=== PATIENT | male | born 1950 | race Caucasian/White ===

== ENCOUNTER 2019-06-01 15:38 | Emergency (ER) | payer OTHER ==
--- NOTE | 2019-06-01 16:23 | EDM.PDOC ---
ED HPI GENERAL MEDICAL PROBLEM - General Chief Complaint: Fever Stated Complaint: FLU FOR 3 WKS/CONFUSED Time Seen by Provider: 06/01/19 15:55 Source of Information: Reports: Patient, RN Notes Reviewed - History of Present Illness INITIAL COMMENTS - FREE TEXT/NARRATIVE: 68-year-old male is in stating I have been sick for a month primarily with cough , mild shortness of breath. This is not been getting better, if anything getting worse. He states his cough is at times nonproductive and at times productive of colored phlegm. States he has had fever and chills off and on for many days. He has no current sore throat or nasal congestion. He also is concerned about an area of swelling that has been present left neck for about 2 months and "not going away". He does smoke and states he has been smoking for about "40 years" - Related Data Allergies Allergy/AdvReac Type Severity Reaction Status Date / Time bees Allergy Severe Swelling Uncoded 06/01/19 15:54 Home Meds: Home Meds Doxycycline [Vibramycin] 100 mg PO BID #14 tab 06/01/19 [Rx] Past Medical History - Past Health History Medical/Surgical History: Denies Medical/Surgical History Social & Family History - Tobacco Use Smoking Status *Q: Current Every Day Smoker Years of Tobacco use: 20 Packs/Tins Daily: 1 - Caffeine Use Caffeine Use: Reports: None - Recreational Drug Use Recreational Drug Use: No ED ROS GENERAL - Review of Systems Review Of Systems: See Below Constitutional: Denies: Fever, Chills, Diaphoresis HEENT: Denies: Sinus Problem, Throat Pain Respiratory: Reports: Shortness of Breath, Pleuritic Chest Pain, Cough, Sputum. Denies: Hemoptysis Cardiovascular: Reports: Chest Pain GI/Abdominal: Denies: Abdominal Pain, Nausea (Coughing), Vomiting Musculoskeletal: Denies: Shoulder Pain, Arm Pain, Leg Pain Skin: Denies: Rash, Erythema Neurological: Reports: No Symptoms ED EXAM, GENERAL - Physical Exam Exam: See Below General Appearance: Alert Nose: Normal Inspection Throat/Mouth: Normal Inspection, Normal Oropharynx Head: Atraumatic Neck: Other (2 to 3 cm palpable mass left neck, nontender, nonfluctuant, no surrounding warmth or erythema. No other neck mass or adenopathy visible or palpable) Respiratory/Chest: Lungs Clear. No: Rhonchi, Wheezing Cardiovascular: Regular Rate, Rhythm GI/Abdominal: Soft, Non-Tender Back Exam: No: CVA Tenderness (L), CVA Tenderness (R) Extremities: Normal Inspection, Normal Range of Motion. No: Pedal Edema, Leg Pain, Increased Warmth, Redness Neurological: Alert, Oriented, No Motor/Sensory Deficits Skin Exam: Warm, Dry, Normal Color Course - Vital Signs Last Recorded V/S: Last Vital Signs Temp 97.2 F 06/01/19 15:51 Pulse 84 06/01/19 15:51 Resp 20 06/01/19 15:51 BP 155/97 H 06/01/19 15:51 Pulse Ox 96 06/01/19 15:51 - Orders/Labs/Meds Labs: Laboratory Tests 06/01/19 06/01/19 Range/Units 16:55 16:55 WBC 12.55 H (4.23-9.07) K/mm3 RBC 5.93 (4.63-6.08) M/mm3 Hgb 16.8 (13.7-17.5) gm/dl Hct 50.0 (40.1-51.0) % MCV 84.3 (79.0-92.2) fl MCH 28.3 (25.7-32.2) pg MCHC 33.6 (32.2-35.5) g/dl RDW Std Deviation 44.7 H (35.1-43.9) fL Plt Count 278 (163-337) K/mm3 MPV 10.1 (9.4-12.3) fl Neut % (Auto) 65.7 (34.0-67.9) % Lymph % (Auto) 25.3 (21.8-53.1) % [place] % (Auto) 6.8 (5.3-12.2) % Eos % (Auto) 1.4 (0.8-7.0) Baso % (Auto) 0.5 (0.1-1.2) % Neut # (Auto) 8.25 H (1.78-5.38) K/mm3 Lymph # (Auto) 3.18 (1.32-3.57) K/mm3 [place] # (Auto) 0.85 H (0.30-0.82) K/mm3 Eos # (Auto) 0.17 (0.04-0.54) K/mm3 Baso # (Auto) 0.06 (0.01-0.08) K/mm3 Manual Slide Review Normal smear Sodium 136 (136-145) mEq/L Potassium 5.0 (3.5-5.1) mEq/L Chloride 99 (98-107) mEq/L Carbon Dioxide 30 (21-32) mEq/L Anion Gap 12.0 (5-15) BUN 14 (7-18) mg/dL Creatinine 0.9 (0.7-1.3) mg/dL Est Cr Clr Drug Dosing 85.02 mL/min Estimated GFR (MDRD) > 60 (>60) mL/min BUN/Creatinine Ratio 15.6 (14-18) Glucose 138 H (80-115) mg/dL Calcium 9.8 (8.5-10.1) mg/dL Total Bilirubin 0.7 (0.2-1.0) mg/dL AST 15 (15-37) U/L ALT 23 (16-63) U/L Alkaline Phosphatase 79 (46-116) U/L Total Protein 8.6 H (6.4-8.2) g/dl Albumin 3.8 (3.4-5.0) g/dl Globulin 4.8 gm/dL Albumin/Globulin Ratio 0.8 L (1-2) Meds: Medications Discontinued Medications Generic Name Dose Route Start Last Admin Trade Name Freq PRN Reason Stop Dose Admin Doxycycline Hyclate 200 mg 06/01/19 18:39 06/01/19 18:49 Vibramycin PO 06/01/19 18:40 200 mg ONETIME ONE Administration - Re-Assessments/Exams Free Text/Narrative Re-Assessment/Exam: 06/03/19 02:27 CXR nl, CBC relatively nl, he does have a large mass R neck, not inflamed, concerning for enlarged lymph node. This needs to be further evaluated/biopsy, This is a Sunday evening, He has had it for about 2 months. discharge instr. as documented. Departure - Departure Time of Disposition: 18:41 Disposition: Home, Self-Care 01 Condition: Fair Clinical Impression: Bronchitis - Discharge Information Prescriptions: Doxycycline [Vibramycin] 100 mg PO BID #14 tab Instructions: Upper Respiratory Infection, Adult, [id number] Referrals: Guadalupe Nascimento TRAINING PROJECT MANAGER [Primary Care Provider] - Forms: ED Department Discharge Additional Instructions: You have been given doxycycline 200 mg orally here in the ED, prescription provided to continue 100 mg twice daily for the next week. See Guadalupe at the [facility] clinic tomorrow, get a referral to have the mass of your left neck biopsied. Sepsis Event Note - Evaluation Sepsis Screening Result: No Definite Risk - Focused Exam Date Exam was Performed: 06/03/19 Time Exam was Performed: 02:26
--- NOTE | 2019-06-01 17:25 | CR ---
Chest: 2 views of the chest were obtained. Comparison: No prior chest x-ray. Heart size is normal. Tortuous thoracic aorta is seen. Lungs are clear with no acute parenchymal change. Moderate sized hiatal hernia is noted. Degenerative endplate spurring and scattered disc space narrowing is seen within the thoracic spine. Lungs are somewhat hyperinflated suggesting an element of emphysematous change. Impression: 1. Hiatal hernia and probable emphysematous change. 2. Nothing acute is otherwise seen on 2 view chest x-ray. Diagnostic code #2 Study was dictated in MDT
[2019-06-01] MEDS ORDERED: Doxycycline 100 MG Cap PO ONE (18:39)
== END 2019-06-01 18:53 | disposition home or self-care (01) ==
LOC: JD.ED 15:38
DX: J40 Bronchitis, not specified as acute or chronic (principal); F17.210 Nicotine dependence, cigarettes, uncomplicated; Z91.030 Bee allergy status
CPT/HCPCS: 36415; 71046; 80053; 85025; 87804; 99284; A9270

== ENCOUNTER 2020-04-16 18:12 | Emergency (ER) | payer OTHER ==
[2020-04-16] MEDS ORDERED: Lactated Ringers 1,000 ML IV ONE (18:51)
--- NOTE | 2020-04-16 19:08 | EDM.PDOC ---
<Freddie Christian - Last Filed: 04/16/20 19:41> ED HPI GENERAL MEDICAL PROBLEM - General Chief Complaint: General Stated Complaint: [facility] Time Seen by Provider: 04/16/20 18:38 - History of Present Illness INITIAL COMMENTS - FREE TEXT/NARRATIVE: 69-year-old male brought into the emergency room by EMS with difficulty speaking. The patient has had increased difficulty speaking over the last week or so. This is thought to be due to the fact that he is not eating or drinking and has a very large left-sided neck mass. His landlord talk to him yesterday and was concerned about his speech and thought maybe he was having a stroke it took over 24 hours to get a hold of family after this to get their approval to have him taken to the emergency room. It is my understanding that the patient really did not want to come into the emergency room. The patient has a large left-sided neck mass. This mass was first noted when it was much smaller here in the emergency room this last May. It is progressively gotten bigger the patient states he really has not had anything to eat or drink for the last 3 to 4 weeks. And he has lost a bunch of weight. Patient denies taking any medications at this point. The patient has a history of alcoholism but has not been actively drinking alcohol in a very long time. The patient states that he has avoided going out in public because he does not want to be seen with this neck mass. He also states that if it is of his time to that that is okay he is not afraid of dying. - Related Data Allergies Allergy/AdvReac Type Severity Reaction Status Date / Time bees Allergy Severe Swelling Uncoded 04/16/20 18:32 Home Meds: Home Meds . [No Known Home Meds] 04/16/20 [History] Past Medical History - Past Health History Medical/Surgical History: Denies Medical/Surgical History - Infectious Disease History Infectious Disease History: Reports: Chicken Pox Social & Family History - Family History Family Medical History: No Pertinent Family History - Tobacco Use Tobacco Use Status *Q: Former Tobacco User Used Tobacco, but Quit: Yes Month/Year Tobacco Last Used: 05/2019 - Caffeine Use Caffeine Use: Reports: Coffee - Recreational Drug Use Recreational Drug Use: No ED ROS GENERAL - Review of Systems Review Of Systems: See Below Constitutional: Reports: Weakness. Denies: Fever, Chills HEENT: Reports: Throat Swelling, Other (Severe dry mouth). Denies: Eye Pain, Hearing Loss, Rhinitis, Sinus Problem, Throat Pain Respiratory: Reports: No Symptoms Cardiovascular: Reports: No Symptoms GI/Abdominal: Reports: Decreased Appetite. Denies: Abdominal Pain, Nausea, Vomiting : Reports: Other (Significantly decreased urine output) Musculoskeletal: Reports: No Symptoms Skin: Reports: No Symptoms Neurological: Reports: Weakness (His weakness is generalized not isolated to one side or the other). Denies: Confusion, Syncope Psychiatric: Reports: No Symptoms, Other Hematologic/Lymphatic: Reports: No Symptoms Immunologic: Reports: No Symptoms ED EXAM, GENERAL - Physical Exam Exam: See Below Exam Limited By: No Limitations General Appearance: Alert, No Apparent Distress Eye Exam: Bilateral Eye: Normal Inspection, PERRL Ears: Normal External Exam, Normal Canal, Hearing Grossly Normal, Normal TMs Nose: Normal Inspection, Normal Mucosa, No Blood Throat/Mouth: Other (Has severe dry mouth it is difficult for him to open his mouth all the way he is developing a transverse fissure under his tongue.) Neck: Other (She has a large left-sided neck mass that is fixed to the underlying tissue with irregular surface borders and very much feels like a malignancy) Respiratory/Chest: No Respiratory Distress, Lungs Clear, Normal Breath Sounds Cardiovascular: Regular Rate, Rhythm, No Edema, No Murmur GI/Abdominal: Normal Bowel Sounds, Soft, Non-Tender Back Exam: Normal Inspection. No: CVA Tenderness (L), CVA Tenderness (R) Extremities: No Pedal Edema Neurological: Alert, Oriented, Normal Cognition, No Motor/Sensory Deficits, Other (oriented to person place time and nightly accurately describe what is been going on with him over the last year). No: Disoriented, Slow to Respond Psychiatric: Normal Affect, Normal Mood Skin Exam: Other (He has some skin tenting) Course - Re-Assessments/Exams Free Text/Narrative Re-Assessment/Exam: 04/16/20 19:50 Patient is alert and oriented and very capable of making his own decisions he states in absolutely no uncertain terms he is not afraid of dying when asked what he would like us to do if his heart was to stop or he was to stop breathing he clearly states let me go. It is my time. It is my initial impression he does not want to pursue an aggressive work-up for this what appears to be neck cancer. He does 1 to be kept comfortable. I have offered work-up to him so he could have some more specific answers on what to tell family members. And he is indeed in agreement to this. At this point his change of shift further care and disposition per Dr. Uribe Departure - Departure Disposition: DC/Tfer to [facility] 02 Clinical Impression: Nasopharyngeal carcinoma, Dehydration, Intravascular volume depletion, Elevated INR - Discharge Information Referrals: PCP,Unknown [Ordering Only Provider] - Forms: ED Department Discharge Sepsis Event Note (ED) - Evaluation Sepsis Screening Result: No Definite Risk <Joaquin Uribe - Last Filed: 04/17/20 04:49> Course - Vital Signs Last Recorded V/S: Last Vital Signs Temp 36.5 C 04/16/20 18:24 Pulse 120 H 04/16/20 18:24 Resp 22 H 04/16/20 18:24 BP 116/76 04/16/20 18:24 Pulse Ox 92 L 04/16/20 18:24 - Orders/Labs/Meds Orders: Active Orders 24 hr Category Date Time Status Chest 1V Frontal [CR] Stat Exams 04/16/20 18:51 Taken Head wo Cont [CT] Stat Exams 04/16/20 18:54 Taken Soft Tissue Neck w Cont [CT] Stat Exams 04/16/20 19:34 Taken UA RFX ZUHAIR AND CULT IF INDIC [URIN] Stat Lab 04/16/20 18:51 Ordered Sodium Chloride 0.9% [Normal Saline] 1,000 ml Med 04/17/20 04:11 Active IV ONETIME Sodium Chloride 0.9% [Normal Saline] 100 ml Med 04/16/20 20:15 Active IV ASDIRECTED Medication Orders Sodium Chloride (Normal Saline) 100 mls @ 60 drops/min IV ASDIRECTED XIOMARA Last Admin: 04/16/20 23:22 Dose: 60 drops/min Documented by: ONEIGIN Sodium Chloride (Normal Saline) 1,000 mls @ 999 mls/hr IV ONETIME ONE Stop: 04/17/20 05:11 Labs: Laboratory Tests 04/16/20 04/16/20 04/16/20 Range/Units 18:25 18:25 18:25 WBC 12.76 H (4.23-9.07) K/mm3 RBC 7.03 H (4.63-6.08) M/mm3 Hgb 17.6 H (13.7-17.5) gm/dl Hct 56.7 H (40.1-51.0) % MCV 80.7 D (79.0-92.2) fl MCH 25.0 L (25.7-32.2) pg MCHC 31.0 L (32.2-35.5) g/dl RDW Std Deviation 51.1 H (35.1-43.9) fL Plt Count 447 H D (163-337) K/mm3 MPV 11.2 (9.4-12.3) fl Neutrophils % (Manual) 81 H (40-60) % Band Neutrophils % 1 (0-10) % Lymphocytes % (Manual) 14 L (20-40) % Atypical Lymphs % 0 % Monocytes % (Manual) 4 (2-10) % Eosinophils % (Manual) 0 L (0.8-7.0) % Basophils % (Manual) 0 L (0.2-1.2) Platelet Estimate Increased Plt Morphology Comment See note Anisocytosis 1+ slight RBC Morph Comment Not Reportable PT 26.9 H (9.7-12.0) SECONDS INR 2.56 Sodium 150 H D (136-145) mEq/L Potassium 3.9 (3.5-5.1) mEq/L Chloride 107 (98-107) mEq/L Carbon Dioxide 25 (21-32) mEq/L Anion Gap 21.9 H (5-15) BUN 36 H (7-18) mg/dL Creatinine 1.5 H (0.7-1.3) mg/dL Est Cr Clr Drug Dosing 49.55 mL/min Estimated GFR (MDRD) 46 (>60) mL/min BUN/Creatinine Ratio 24.0 H (14-18) Glucose 158 H (80-115) mg/dL Lactic Acid (0.4-2.0) mmol/L Calcium 9.2 (8.5-10.1) mg/dL Total Bilirubin 1.0 (0.2-1.0) mg/dL AST 48 H (15-37) U/L ALT 13 L (16-63) U/L Alkaline Phosphatase 100 (46-116) U/L Total Protein 8.7 H (6.4-8.2) g/dl Albumin 2.4 L (3.4-5.0) g/dl Globulin 6.3 gm/dL Albumin/Globulin Ratio 0.4 L (1-2) SARS-CoV-2 RNA (MAN) (NEGATIVE) 04/16/20 04/16/20 04/17/20 Range/Units 19:05 21:55 03:15 WBC (4.23-9.07) K/mm3 RBC (4.63-6.08) M/mm3 Hgb (13.7-17.5) gm/dl Hct (40.1-51.0) % MCV (79.0-92.2) fl MCH (25.7-32.2) pg MCHC (32.2-35.5) g/dl RDW Std Deviation (35.1-43.9) fL Plt Count (163-337) K/mm3 MPV (9.4-12.3) fl Neutrophils % (Manual) (40-60) % Band Neutrophils % (0-10) % Lymphocytes % (Manual) (20-40) % Atypical Lymphs % % Monocytes % (Manual) (2-10) % Eosinophils % (Manual) (0.8-7.0) % Basophils % (Manual) (0.2-1.2) Platelet Estimate Plt Morphology Comment Anisocytosis RBC Morph Comment PT (9.7-12.0) SECONDS INR Sodium (136-145) mEq/L Potassium (3.5-5.1) mEq/L Chloride (98-107) mEq/L Carbon Dioxide (21-32) mEq/L Anion Gap (5-15) BUN (7-18) mg/dL Creatinine (0.7-1.3) mg/dL Est Cr Clr Drug Dosing mL/min Estimated GFR (MDRD) (>60) mL/min BUN/Creatinine Ratio (14-18) Glucose (80-115) mg/dL Lactic Acid 2.7 H* 2.4 H* (0.4-2.0) mmol/L Calcium (8.5-10.1) mg/dL Total Bilirubin (0.2-1.0) mg/dL AST (15-37) U/L ALT (16-63) U/L Alkaline Phosphatase (46-116) U/L Total Protein (6.4-8.2) g/dl Albumin (3.4-5.0) g/dl Globulin gm/dL Albumin/Globulin Ratio (1-2) SARS-CoV-2 RNA (MAN) Negative (NEGATIVE) Meds: Medications Generic Name Dose Route Start Last Admin Trade Name Freq PRN Reason Stop Dose Admin Sodium Chloride 100 mls @ 60 drops/min 04/16/20 20:15 04/16/20 23:22 Normal Saline IV 60 drops/min ASDIRECTED XIOMARA Administration Sodium Chloride 1,000 mls @ 999 mls/hr 04/17/20 04:11 Normal Saline IV 04/17/20 05:11 ONETIME ONE Discontinued Medications Generic Name Dose Route Start Last Admin Trade Name Freq PRN Reason Stop Dose Admin Dexamethasone 6 mg 04/17/20 03:56 Decadron IVPUSH 04/17/20 03:57 ONETIME STA Lactated Ringer's 1,000 mls @ 999 mls/hr 04/16/20 18:51 04/16/20 19:31 Ringers, Lactated IV 04/16/20 19:51 999 mls/hr .BOLUS ONE Administration Iopamidol 50 ml 04/16/20 20:01 04/16/20 23:22 Isovue-300 (61%) IVPUSH 04/16/20 20:02 50 ml ONETIME ONE Administration - Re-Assessments/Exams Free Text/Narrative Re-Assessment/Exam: 04/16/20 21:09 Portable chest radiograph reviewed. The cardiac silhouette is within normal limits. No pulmonary vascular congestion. No pleural effusions seen on this AP view. No focal infiltrate. No pneumothorax. Small to moderate sized hiatal hernia noted. Formal read per the Radiologist pending. CT of the head without contrast is read by [facility] as: 1. Abnormal soft tissue along the left nasopharynx suspicious for malignancy. Extensive associated partially imaged bilateral cervical lymphadenopathy left greater than right. Please see report from neck CT. 2. No acute intracranial process. The patient's CBC is remarkable for WBC count elevated at 12.76, but with only 1% bandemia. His H/H are elevated at 17.6/56.7. He has thrombocytosis of 447,000. His CMP is remarkable for hypernatremia of 150. His anion gap is elevated at 21 .9, but with a bicarbonate normal at 25. His BUN/Cr are elevated at 36/1.5, with mild hyperglycemia of 158. His AST is slightly elevated at 48, with an ALT normal at 13, and the remainder of his CMP being unremarkable. His lactic acid level is elevated at 2.7. His INR is elevated at 2.56. 04/16/20 21:51 CT of the neck with IV contrast is read by [facility] as: 1. Extensive malignancy within the neck. Enhancing mass/abnormal soft tissue in the left nasopharynx with extension inferiorly in left peritonsillar region may possibly represent a primary malignancy. There is some associated narrowing and displacement of airway to the right. 2. Massive bilateral lymphadenopathy much greater on the left than the right throughout all levels/cervical soft tissues compatible with extensive malignant lymphadenopathy. 3. The left jugular vein and left carotid artery are not well visualized and are displaced/encased by the extensive left cervical lymphadenopathy. Left jugular vein probably at least partially occluded. 4. Lymphadenopathy extends inferiorly to the supraclavicular regions and into the superior mediastinum. 5. Patchy sclerotic lesions involving multiple cervical vertebral bodies may represent osseous metastatic disease. 04/16/20 23:12 A repeat lactic acid level has returned elevated at 2.4. The patient has still not provided a urine sample, however, I discussed the test results thus far with the patient and his girlfriend, who is at the bedside. The patient stated that he thought that what was going on was his neck had something to do with his lymph nodes, but he had not been considering that it was cancerous. He stated that he had been considering suicide, and also stated that he has not slept for the past 7 months. I recommended that he be admitted to the hospital, either here or in [place], to continue his IV hydration, and to then be seen by an Oncologist, who could then discuss treatment options, that may include palliative care. The patient agreed that it would be important to first know what his options are before making any big decisions, and is therefore agreeable not only to admission, but to transfer, if feasible. 04/17/20 03:15 Case discussed with Marlin at [facility]. Unfortunately, [facility] does not have an Oncologist on staff. 04/17/20 03:56 Case discussed with Prosper at [facility] at 03:16. Case then discussed with Dr. Swanson, Hospitalist at [facility], at 03:41. He accepted the patient for transfer to their facility, but wanted to discuss the case with the Oncologist first, to make sure that no treatment was necessary prior to transferring the patient. Case then discussed with Dr. Guillen, Oncologist on-call at [facility], at 03:50. He recommended that the patient be given Decadron 6 mg IV every 6 hours. I will start the patient on that now. The chest x-ray and to CT images were pushed to [facility] at 03:50. 04/17/20 04:12 The above plan was discussed with the patient and his girlfriend. The patient is agreeable. He will be transported by ground ambulance. 04/17/20 04:49 The patient's swab for the SARS-CoV-2 virus has returned negative. Departure - Departure Time of Disposition: 03:55 Condition: Good - Discharge Information *PRESCRIPTION DRUG MONITORING PROGRAM REVIEWED*: Not Applicable *COPY OF PRESCRIPTION DRUG MONITORING REPORT IN PATIENT JOE: Not Applicable Sepsis Event Note (ED) - Focused Exam Vital Signs: Vital Signs Temp Pulse Resp BP Pulse Ox 04/16/20 18:24 36.5 C 120 H 22 H 116/76 92 L - My Orders Last 24 Hours: My Active Orders 04/17/20 04:11 Sodium Chloride 0.9% [Normal Saline] 1,000 ml IV ONETIME - Assessment/Plan Last 24 Hours: My Active Orders 04/17/20 04:11 Sodium Chloride 0.9% [Normal Saline] 1,000 ml IV ONETIME
[2020-04-16] MEDS ORDERED: Iopamidol 612 MG/ML 50 ML SDV IVPUSH ONE (20:01)
[2020-04-16] MEDS ORDERED: Sodium Chloride 0.9% 100 ML IV SCH (20:15)
[2020-04-17] MEDS ORDERED: Dexamethasone 4 MG/ML SDV IVPUSH STA (03:56)
[2020-04-17] MEDS ORDERED: Sodium Chloride 0.9% 1,000 ML IV ONE (04:11)
--- NOTE | 2020-04-17 10:19 | CR ---
Chest: Portable view of the chest was obtained. Comparison: Prior chest x-ray of 06/01/19. Hiatal hernia is noted which is moderate in amount. Heart size is normal. Tortuous thoracic aorta is seen. Lungs are clear with no acute parenchymal change. No acute bony abnormality is appreciated. Impression: 1. Findings as noted above. 2. Nothing acute is seen. Diagnostic code #2
--- NOTE | 2020-04-17 10:30 | CT ---
Head CT Technique: Multiple axial sections through the brain were obtained. Intravenous contrast was not utilized. Comparison: No prior intracranial imaging is available. Findings: Ventricles along with basal cisterns and sulci over the convexities are moderately prominent. No abnormal parenchymal densities are appreciated. No evidence of intracranial hemorrhage. Minimal atherosclerotic calcification is seen within the carotid siphon. Soft tissue abnormality is noted within the posterior left nasopharynx. This finding measures approximately 2.9 cm x 2.1 cm. Mucosal thickening is seen within the right maxillary sinus. Mild mucosal thickening is noted within the ethmoid sinuses. Minimal mucosal thickening is seen within the left maxillary sinus. Multiple enlarged lymph nodes are seen throughout the neck. Scattered areas of mucosal thickening are seen within the mastoid sinuses. No acute osseous finding is appreciated. Impression: 1. Soft tissue abnormality within the posterior left nasopharynx measuring 2.9 x 2.1 cm. This is suspicious for possible neoplasm. 2. Prominent adenopathy within the neck. 3. Generalized atrophy with no acute intracranial abnormality is seen. 4. Paranasal sinus disease as noted above. Mastoid sinus mucosal thickening is also noted. Diagnostic code #9 I agree with preliminary report issued [facility] report finalized on 04/16/20, 10:02 PM APPLE PICKING SUPERVISOR
--- NOTE | 2020-04-17 11:10 | CT ---
CT neck Technique: Multiple axial sections through the neck were obtained. Intravenous contrast was utilized. Reconstructed coronal and sagittal images were obtained. Findings: Soft tissue abnormality showing enhancement is seen within the left nasopharynx. This was measured on the head CT exam. Paranasal sinus disease is seen which is most likely chronic. Soft tissue density is noted within the mastoid sinuses. Innumerable enlarged lymph nodes are seen on both sides of the neck, worse on the left side. Visualized lung apices show nothing acute. Left carotid artery and jugular vein are not well seen which are most likely obscured from the adenopathy. There is mild mass-effect upon the airway secondary to the adenopathy on the right side. Mild scattered degenerative change is seen within the spine. Minimal areas of sclerosis are scattered within several cervical and thoracic vertebral bodies which are most likely due to early metastatic disease. Impression: 1. Prominent adenopathy on both sides of the neck, worse on the left side. 2. Left-sided nasopharynx mass is noted. 3. Other findings as noted above likely relating to the adenopathy. 4. 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 Diagnostic code #9 I agree with preliminary report issued [facility] report finalized on 04/16/20, 10:26 PM BAR ROLLER
== END 2020-04-17 10:17 ==
LOC: JD.ED 18:12
DX: E86.0 Dehydration (principal); E86.9 Volume depletion, unspecified; R79.1 Abnormal coagulation profile; C11.9 Malignant neoplasm of nasopharynx, unspecified; Z91.030 Bee allergy status; Z87.891 Personal history of nicotine dependence; Z20.822 Contact with and (suspected) exposure to COVID-19
CPT/HCPCS: 36415; 70450; 70491; 71045; 80053; 83605; 85007; 85027; 85610; 87635; 96374; 99285; J1100; J7030; J7120; Q9967; U0002